=== PATIENT | male | born 2000 | race Caucasian/White ===

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

== ENCOUNTER 2018-07-23 08:42 | Emergency (ER) | payer MEDICAID, OTHER ==
[~2018-07-23] VITALS: Ht 160 cm; Wt 72.2 kg
[~2018-07-23 08:42] MED LIST: ALBU8.5H8 INH; BENZ-6 PO; CEPH-443 PO; DOXY100T20 PO; IBUP-1542 PO; MUPI22OI2 TOP; PRED20TA PO; SULF1TAB31 PO
[2018-07-23 09:03] VITALS: BP 119/66; PULSE 64; RESP 18; Ht 160 cm; Wt 72.2 kg
[2018-07-23] MEDS ORDERED: ONDANSETRON (ODT) 4 MG TAB ODT STA (09:55)
[2018-07-23] MEDS ORDERED: HYDROCODONE/APAP (5/325) TAB PO ONE (10:00)
[2018-07-23] MEDS ORDERED: NAPR-985 PO (11:08)
--- NOTE | 2018-07-23 11:49 | ERD ---
ER Documentation Chief Complaint Chief Complaint PAINFUL, FREQUENT URINATION, BLOOD IN URINE X2 DAYS HPI 17-year-old male complaining of painful urination and dysuria. Patient had blood in his urine for 2 days. He has some mild right right-sided pain and sharp stabbing sensations. He states it comes and goes. He has not taken m edications for symptoms. Denies any fevers. Denies chest pain or shortness of breath. Denies changes in bowel movement. Denies medical problems. NKDA. Surgical history denies. Social history smokes both marijuana and cigarettes. ROS All systems reviewed and are negative except as per history of present illness. Medications Home Meds Active Scripts Naproxen* (Naprosyn*) 500 Mg Tablet, 500 MG PO BID PRN for PAIN AND/OR INFLAMMATION, #30 TAB Prov:ALANIS ESTEVES PA-C 07/23/18 Sulfamethoxazole/Trimethoprim* (Bactrim Ds* Tablet) 1 Each Tablet, 1 TAB PO BID, #14 TAB Prov:ANTELMO BENITEZ MD 11/03/17 Ibuprofen* (Motrin*) 600 Mg Tab, 600 MG PO Q6, #30 TAB Prov:SHAYAN HAJI PA-C 11/02/17 Mupirocin* (Bactroban*) 2% -22 Gram Oint...g., 1 APPLIC TOP BID for 7 Days, EA Prov:SHAYAN HAJI PA-C 11/02/17 Cephalexin* (Keflex*) 500 Mg Capsule, 500 MG PO TID for 7 Days, CAP Prov:SHAYAN HAJI PA-C 11/02/17 Doxycycline Hyclate* (Doxycycline Hyclate*) 100 Mg Tablet.dr, 100 MG PO BID for 7 Days, TAB Prov:ALANIS ESTEVES PA-C 08/14/17 Benzonatate* (Tessalon Perle*) 100 Mg Capsule, 100 MG PO Q8H PRN for COUGH, #30 CAP Prov:ALANIS ESTEVES PA-C 08/14/17 Prednisone* (Prednisone*) 20 Mg Tab, 40 MG PO DAILY for 4 Days, TAB Prov:ALANIS ESTEVES PA-C 08/14/17 Albuterol Sulfate* (Proair HFA*) 8.5 Gm Hfa.aer.ad, 2 PUFF INH Q4, #1 INHALER Prov:ALANIS ESTEVES PA-C 08/14/17 Allergies Allergies: Coded Allergies: No Known Allergy (Unverified , 08/14/17) PMhx/Soc Medical and Surgical Hx: pt denies Medical Hx, pt denies Surgical Hx Hx Alcohol Use: Yes Hx Substance Use: Yes (MARIJUANA) Hx Tobacco Use: Yes Smoking Status: Current every day smoker FmHx Family History: No diabetes, No coronary disease, No other Physical Exam Vitals Vital Signs Date Temp Pulse Resp B/P (MAP) Pulse Ox O2 O2 Flow FiO2 Time Delivery Rate 07/23/18 97.5 64 18 119/66 98 09:03 (83) Physical Exam GENERAL: The patient is well-appearing, well-nourished, in no acute distress HEENT: Atraumatic. Conjunctivae are pink. Pupils equal, round, and reactive to light. There is no scleral icterus. Tympanic membranes clear bilaterally. Oropharynx clear. NECK: C-spine is soft and supple. There is no meningismus. There is no cervical lymphadenopathy. CHEST: Clear to auscultation bilaterally. There are no rales, wheezes or rhonchi. HEART: Regular rate and rhythm. No murmurs, clicks, rubs or gallops. ABDOMEN:Soft, nontender and nondistended. Good bowel sounds. No rebound or guarding. No gross peritonitis. No gross organomegaly or masses. BACK: No midline or flank tenderness. Result Diagram: 07/23/1858 07/23/1858 Results 24 hrs Laboratory Tests Test 07/23/18 09:58 White Blood Count 6.6 10^3/ul Red Blood Count 5.49 10^6/ul Hemoglobin 15.1 g/dl Hematocrit 45.4 % Mean Corpuscular Volume 82.7 fl Mean Corpuscular Hemoglobin 27.5 pg Mean Corpuscular Hemoglobin Concent 33.3 g/dl Red Cell Distribution Width 13.4 % Platelet Count 294 10^3/UL Mean Platelet Volume 9.5 fl Immature Granulocytes % 0.200 % Neutrophils % 50.1 % Lymphocytes % 39.9 % Monocytes % 9.1 % Eosinophils % 0.2 % Basophils % 0.5 % Nucleated Red Blood Cells % 0.0 /100WBC Immature Granulocytes # 0.010 10^3/ul Neutrophils # 3.3 10^3/ul Lymphocytes # 2.6 10^3/ul Monocytes # 0.6 10^3/ul Eosinophils # 0.0 10^3/ul Basophils # 0.0 10^3/ul Nucleated Red Blood Cells # 0.0 10^3/ul Urine Color COLORLESS Urine Clarity CLEAR Urine pH 7.0 Urine Specific [place] 1.001 Urine Ketones NEGATIVE mg/dL Urine Nitrite NEGATIVE mg/dL Urine Bilirubin NEGATIVE mg/dL Urine Urobilinogen NEGATIVE mg/dL Urine Leukocyte Esterase NEGATIVE [place]/ul Urine Microscopic RBC 0 /HPF Urine Microscopic WBC 0 /HPF Urine Hemoglobin 1+ mg/dL Urine Glucose NEGATIVE mg/dL Urine Total Protein NEGATIVE mg/dl Sodium Level 143 mmol/L Potassium Level 3.4 mmol/L Chloride Level 100 mmol/L Carbon Dioxide Level 32 mmol/L Anion Gap 11 Blood Urea Nitrogen 8 mg/dl Creatinine 0.88 mg/dl Est Glomerular Filtrat Rate mL/min > 60 mL/min Glucose Level 100 mg/dl Calcium Level 9.5 mg/dl Total Bilirubin 0.4 mg/dl Direct Bilirubin 0.00 mg/dl Indirect Bilirubin 0.4 mg/dl Aspartate Amino Transf (AST/SGOT) 16 IU/L Alanine Aminotransferase (ALT/SGPT) 30 IU/L Alkaline Phosphatase 64 IU/L Total Protein 7.8 g/dl Albumin 4.6 g/dl Globulin 3.20 g/dl Albumin/Globulin Ratio 1.43 Lipase 50 U/L Current Medications Medications Dose Sig/Estefany Start Time Status Last (Trade) Ordered Route PRN Stop Time Admin Dose Reason Admin 1 tab ONCE ONCE 07/23/18 DC 07/23/18 Acetaminophen PO 10:00 10:11 / 07/23/18 10:01 Hydrocodone Bitart (Sanford (5/325)) Ondansetron 4 mg ONCE STAT 07/23/18 DC 07/23/18 HCl (Zofran ODT 09:55 10:10 Odt) 07/23/18 09:57 Procedures/MDM DIAGNOSTIC IMAGING REPORT Patient: OSMANY EASLEY : 2000 Age: 17 Sex: M MR #: [id number] DOS: 07/23/18 0955 Ordering MD: CARLITO ESTEVES PA-C Location: [facility] Room/Bed: PROCEDURE: CT Abdomen and Pelvis without contrast. CLINICAL INDICATION: Abdominal pain. TECHNIQUE: Routine axial tomographic images of the abdomen and pelvis were obtained from the domes the diaphragm to the symphysis pubis. The patient was scanned withoutoral or intravenous contrast. Coronal and sagittal reformatted images were obtained from the axial source images. Images were reviewed on a high-resolution PACS workstation. The total exam CTDI equals 9.09 mGy and the total exam DLP equals 511.64 mGy-cm. One or more of the following dose reduc tion techniques were used: Automated exposure control, adjustment of the mA and / or kV according to patient size, or use of iterative reconstruction technique. DICOM images are available. COMPARISON: None. FINDINGS: The visualized portions of the lung bases are clear. Evaluation of the intra-abdominal solid organs is somewhat limited on this noncontrast examination. The liver appears normal in size. There is no intra or extrahepatic biliary dilatation. The gallbladder is unremarkable by CT criteria. The spleen, pancreas, and adrenal glands are unremarkable. The kidneys are symmetric in size. No renal, ureteral, or bladder calculi are identified. No perinephric inflammatory changes are identified. The urinary bladder is grossly unremarkable. The bowel demonstrates normal course and caliber. There is no evidence of bowel obstruction. The appendix is normal in appearance. The pelvic organs are grossly unremarkable. No intraperitoneal free fluid, free air, or abscess is identified. No retroperitoneal, mesenteric, or inguinal lymphadenopathy is identified. The aorta is normal in caliber. The osseous structures demonstrate bilateral L5 pars defects. No significant subcutaneous soft tissue abnormalities are seen. IMPRESSION: 1. Limited noncontrast CT of the abdomen and pelvis. No acute intra-abdominal abnormality identified. 2. L5 spondylolysis. ER Course: Sanford and Zofran given in ED. Pain controlled. MDM: 17-year-old male presenting with right-sided flank pain. CT scan is negative for nephrolithiasis. Patient's urinalysis is negative for infection. Patient's exam is non-concerning. Vitals are stable. I do not feel there is indication for further blood work or imaging. Patient is stable. He will be discharged with supportive medications and recommended to follow-up with primary care within 1 to 2 days for close evaluation. All questions answered at discharge Departure Diagnosis: Primary Impression: Flank pain Condition: Stable Patient Instructions: Flank Pain, Uncertain Cause Referrals: [facility] YOU HAVE RECEIVED A MEDICAL SCREENING EXAM AND THE RESULTS INDICATE THAT YOU DO NOT HAVE A CONDITION THAT REQUIRES URGENT TREATMENT IN THE EMERGENCY DEPARTMENT. FURTHER EVALUATION AND TREATMENT OF YOUR CONDITION CAN WAIT UNTIL YOU ARE SEEN IN YOUR DOCTORS OFFICE WITHIN THE NEXT 1-2 DAYS. IT IS YOUR RESPONSIBILITY TO MAKE AN APPOINTMENT FOR FOLOW-UP CARE. IF YOU HAVE A PRIMARY DOCTOR --you should call your primary doctor and schedule an appointment IF YOU DO NOT HAVE A PRIMARY DOCTOR YOU CAN CALL OUR PHYSICIAN REFERRAL HOTLINE AT IF YOU CAN NOT AFFORD TO SEE A PHYSICIAN YOU CAN CHOSE FROM THE FOLLOWING [facility] [address] [facility]. [facility] [address] [facility] [facility] [address] [facility] [facility] [address] [facility]. [facility] [address] [facility]. [facility] [address] Additional Instructions: FOLLOW UP WITH YOUR PRIMARY CARE PHYSICIAN TOMORROW.Return to this facility if you are not improving as expected. ALANIS ESTEVES PA-C July 23, 2018 11:49
== END 2018-07-23 11:30 | disposition home or self-care (01) ==
LOC: FTE 08:42
DX: R10.9 Unspecified abdominal pain (principal); F17.210 Nicotine dependence, cigarettes, uncomplicated
CPT/HCPCS: 74176; 80053; 81001; 83690; 85025; Z7502; Z7610